=== PATIENT | female | born 1945 | race Caucasian/White ===

== ENCOUNTER 2017-12-31 07:34 | Day surgery (SDC) | payer OTHER ==
[2017-12-24 10:38] VITALS: BMI 21.7
[~2017-12-31 07:34] MED LIST: Lactated Ringer's 500 ML IV ONE
[2017-12-31] MEDS ORDERED: Lactated Ringer's 500 ML IV ONE (08:45)
[2017-12-31] MEDS ORDERED: Propofol 10 mg/ml Inj (20 ML) ONE ×2 (09:49→10:11)
[2017-12-31] MEDS: Lidocaine/Epinephrine 1% 1:100000 10 ML IJ ONE ×2 (09:51→09:59)
[2017-12-31] MEDS ORDERED: MethylPREDNISolone 40 mg Vial ONE (10:06)
[2017-12-31] MEDS ORDERED: Gentamicin 80 mg/2mL Inj. ONE (10:06)
[2017-12-31] MEDS ORDERED: Tobramycin/Dexamethasone OPHT OINT ONE (10:18)
[2017-12-31] MEDS: HYDROmorphone 0.5 mg/0.5 ml ISec IVP PRN ×3 (10:42→11:28)
[2017-12-31] MEDS ORDERED: Labetalol 25mg/5ml Syringe IVP STA (11:06)
[2017-12-31 12:49] VITALS: RESP 16
[2017-12-31 15:28] VITALS: BP 138/59; PULSE 74; TEMP 97.4; O2SAT 99
--- NOTE | 2017-12-31 20:45 | OP ---
PROCEDURE DATE: 12/31/2017 PREOPERATIVE DIAGNOSES: Scleral melt, right eye. Scleral ulceration, right eye. Corneal degeneration, right eye. Dellen, right eye. POSTOPERATIVE DIAGNOSES: Scleral melt, right eye. Scleral ulceration, right eye. Corneal degeneration, right eye. Dellen, right eye. PROCEDURE: Conjunctival reconstruction with scleral patch graft with amniotic membrane grafting, right eye. SURGEON: Vitor Jefferson MD TYPE OF ANESTHESIA: Sedation and local. ESTIMATED BLOOD LOSS: 0.5 mL COMPLICATIONS: None. DESCRIPTION OF PROCEDURE: The patient was brought to the operating room and properly identified. Anesthesia staff gave her IV sedation. The patient was then prepped and draped in the usual sterile fashion sitting superiorly. There was noted to be corneal and scleral ulceration nasal to the cornea and a dense calcific plaque. Using a 0.12 Joe scissors as much of the dense plaque was removed. Once this was done, scleral patch graft was cut into appropriate size and sutured in place using Vicryl sutures. Once this was complete, amniotic membrane was placed over the graft and also sutured into place and then glued. There was no way to cover it with conjunctiva. The conjunctiva was very scarred and unable to hide puller the graft. Subconjunctival antibiotics and steroids were then given. The patient was returned to the recovery room in stable condition. Vitor Jefferson MD
== END 2017-12-31 14:59 | disposition home or self-care (01) ==
LOC: C.SDS 07:34
PROVIDERS: ATTEND Ophthalmology
DX: H15.89 Other disorders of sclera (principal); H15.001 Unspecified scleritis, right eye; H18.40 Unspecified corneal degeneration; H15.04 Scleritis with corneal involvement
CPT/HCPCS: 65779; J1170; J1580; J2405; J2704; J2920; J7120